=== PATIENT | male | born 1985 | race American Indian/Alaskan Native ===

== ENCOUNTER 2018-10-06 08:13 | Emergency (ER) | payer OTHER ==
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
[2018-10-06] MEDS ORDERED: IBUPROFEN PO ONE (10:28)
--- NOTE | 2018-10-06 12:49 | XRay Report ---
ABDOMEN, 2 views: History: Flank pain, lateral rib pain. There is no evidence of free air beneath the diaphragms. The gas pattern within the abdomen is unremarkable. There is no evidence of bowel dilatation, significant air-fluid levels, or pathologic calcifications. Organ shadows are unremarkable. IMPRESSION: Unremarkable abdomen.
--- NOTE | 2018-10-06 12:50 | XRay Report ---
LEFT RIBS, 3 VIEWS: History: pain. A subtle nondisplaced left anterolateral 10th rib fracture is identified. The remaining left ribs are grossly intact. Left lung is well-aerated. IMPRESSION: Left 10th rib fracture.
[2018-10-06 13:52] VITALS: BP 131/99
== END 2018-10-06 13:53 | disposition home or self-care (01) ==
LOC: ED 08:13
DX: S22.32XA Fracture of one rib, left side, initial encounter for closed fracture (principal); M79.18 Myalgia, other site; V49.59XA Passenger injured in collision with other motor vehicles in traffic accident, initial encounter; Y93.89 Activity, other specified; Y92.488 Other paved roadways as the place of occurrence of the external cause; Y99.8 Other external cause status
CPT/HCPCS: 74019

== ENCOUNTER 2019-11-02 17:07 | Emergency (ER) | payer SELFPAY ==
[2019-11-02 18:17] VITALS: BP 128/79
--- NOTE | 2019-11-02 18:17 | Emergency Department Report ---
Blank Doc - Documentation Documentation: 33-year-old male that presents with right numbness and decreased ROM of wrist. This initial assessment/diagnostic orders/clinical plan/treatment(s) is/are subject to change based on patient's health status, clinical progression and re- assessment by fellow clinical providers in the ED. Further treatment and workup at subsequent clinical providers discretion. Patient/guardians urged not to elope from the ED as their condition may be serious if not clinically assessed and managed. Initial orders include: 1- Patient sent to [facility] for further evaluation and treatment 2- xrays
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
== END 2019-11-02 22:32 | disposition left against medical advice (07) ==
LOC: ED 17:07
DX: Q68.8 Other specified congenital musculoskeletal deformities (principal)
CPT/HCPCS: 99282